=== PATIENT | male | born 1955 | race Caucasian/White ===

== ENCOUNTER 2018-04-22 04:45 | Emergency (ER) | payer OTHER ==
[2018-04-22 04:52] VITALS: BP 132/86; PULSE 87; TEMP 98; BMI 24.3
--- NOTE | 2018-04-22 04:57 | PDOC ---
History of Present Illness - General Chief Complaint: Pain, Acute Stated Complaint: BACK PAIN X 2 WEEKS Time Seen by Provider: 04/22/18 04:56 - History of Present Illness Initial Comments: This 62-year-old man with history of hyperlipidemia and herniated disc ( diagnosed approximately 15 years ago; patient remembers that it was lumbar 3 vertebra) presents with approximately 2 week history of lower back pain. Patient recalls lowering his left leg suddenly while in the bathtub 2 weeks ago ; he recalls sudden and severe pain in the area where he usually has pain(third lumbar vertebrae). Since then, he has had episodes of severe pain. He takes ibuprofen as needed. No other medications are taken for this pain. He denies groin numbness or urinary/bowel incontinence. Most recent ibuprofen was a few hours prior to presentation. Past History - Past Medical History Allergies/Adverse Reactions: Allergies Allergy/AdvReac Type Severity Reaction Status Date / Time Penicillins Allergy Verified 04/22/18 04:46 Home Medications: Ambulatory Orders Diclofenac Sodium [Voltaren -] 75 mg PO BID #20 tablet. 04/22/18 Diclofenac Sodium [Voltaren -] 75 mg PO BID PRN #20 tablet. 04/22/18 Simvastatin [Zocor -] 5 mg PO HS 04/22/18 Tizanidine HCl [Zanaflex (Nf) -] 4 mg PO TID #15 tablet 04/22/18 Tizanidine HCl [Zanaflex (Nf) -] 4 mg PO TID PRN #15 tablet 04/22/18 COPD: No Hypercholesterolemia: Yes Other medical history: HERNIATED DISC - Suicide/Smoking/Psychosocial Hx Smoking History: Never smoked Have you smoked in the past 12 months: No Information on smoking cessation initiated: No Hx Alcohol Use: No Drug/Substance Use Hx: No Substance Use Type: Marijuana Review of Systems - Review of Systems Able to Perform ROS?: Yes Comments:: 12 point review of systems is negative except for what is noted in the history of present illness *Physical Exam - Vital Signs Last Vital Signs Temp Pulse Resp BP Pulse Ox 98 F 87 18 132/86 99 04/22/18 04:49 04/22/18 04:49 04/22/18 04:49 04/22/18 04:49 04/22/18 04:49 - Physical Exam Comments: GENERAL: HEAD: Normal with no signs of trauma. EYES: PERRLA, EOMI, sclera anicteric, conjunctiva clear. ENT: Ears normal, nares patent, oropharynx clear without exudates. Dry mucous membranes. NECK: Normal range of motion, supple without lymphadenopathy, JVD, or masses. LUNGS: Breath sounds equal, clear to auscultation bilaterally. No wheezes, and no crackles. HEART:Regular rate and rhythm, normal S1 and S2 without murmur, rub or gallop. ABDOMEN:.normal bowel sounds No guarding,tenderness or rebound.No masses No distention. EXTREMITIES: Normal range of motion, no edema. No clubbing or cyanosis. No erythema, or tenderness. NEUROLOGICAL: Cranial nerves II through XII grossly intact. Normal speech. No focal neurological deficits. MUSCULOSKELETAL: Back non-tender to palpation, no CVA tenderness; no pain on straight leg raising either side No demonstrable numbness/ of the upper extremities. SKIN: Warm, Dry, normal turgor, no rashes or lesions noted. Progress Note - Progress Note Progress Note: Patient given Toradol 60 mg IM with some improvement in pain; Prescriptions for diclofenac 75 mg twice a day as well as tizanidine 4 mg 3 times a day for muscle spasms sent to pharmacy. Patient has an orthopedic group which he can refer *DC/Admit/Observation/Transfer Diagnosis at time of Disposition: Low back pain Qualifiers: Chronicity: acute Back pain laterality: left Sciatica presence: without sciatica Qualified Code(s): M54.5 - Low back pain - Discharge Dispostion Disposition: HOME Condition at time of disposition: Stable - Prescriptions Prescriptions: Diclofenac Sodium [Voltaren -] 75 mg PO BID PRN #20 tablet.dr ARELLANO Reason: Back Pain Diclofenac Sodium [Voltaren -] 75 mg PO BID #20 tablet. Tizanidine HCl [Zanaflex (Nf) -] 4 mg PO TID PRN #15 tablet PRN Reason: Muscle Spasms Tizanidine HCl [Zanaflex (Nf) -] 4 mg PO TID #15 tablet - Referrals - Patient Instructions Printed Discharge Instructions: Low Back Pain Additional Instructions: Local warmth to area of pain Diclofenac 75 mg twice a day-take with food Tizanidine 4 mg up to 3 times a day as needed for muscle spasms-this medication will make you sleepy Return to ER if you have severe, persistent pain or you experience leg weakness/ severe numbness Follow-up with your orthopedist within the next 5 days - Post Discharge Activity
[2018-04-22] MEDS ORDERED: KETOROLAC TROMETHAMINE 60 MG/2 ML VIAL ONE (05:14)
[2018-04-22] MEDS ORDERED: KETOROLAC TROMETHAMINE 60 MG/2 ML VIAL IM ONE (05:14)
[2018-04-22] MEDS ORDERED: CYCLOBENZAPRINE HCL 10 MG TABLET (FP) PO ONE (05:34)
[2018-04-22] MEDS ORDERED: CYCLOBENZAPRINE HCL 10 MG TABLET (FP) ONE (05:35)
== END 2018-04-22 05:38 | disposition home or self-care (01) ==
LOC: FER 04:45
PROC: 3E0233Z Introduction of Anti-inflammatory into Muscle, Percutaneous Approach (ICD-10-PCS; principal; 2018-04-22)
DX: M54.5 Low back pain (principal)
CPT/HCPCS: 99281-25